=== PATIENT | female | born 1945 | race Caucasian/White ===

== ENCOUNTER 2017-09-18 20:55 | Emergency (ER) | payer OTHER ==
[~2017-09-18] VITALS: Ht 160 cm; Wt 88.6 kg
[2017-09-18 20:59] VITALS: BP 134/70
--- NOTE | 2017-09-18 21:06 | NUR ---
PT.AMBULATED TO [facility]
[2017-09-18] MEDS: PANTOPRAZOLE 40 MG INJ VIAL IVP ONE ×2 (22:15→23:15)
--- NOTE | 2017-09-18 22:22 | NUR ---
TO ER BED 5
--- NOTE | 2017-09-18 22:23 | NUR ---
72/F CAME IN ED, C/O 02/11 MID ABD PAIN X1 DAY. PT REPORTS NAUSEA, DENIES V/D. LBM TODAY. SKIN IS INTACT, PINK/WARM/DRY; AAOX4, PERRL, WITH EVEN AND STEADY GAIT; LUNGS CLEAR BL, BREATHING UNLABORED; HR EVEN AND REGULAR, BL PERIPHERAL PULSES PRESENT; BS ACTIVE X4, ABD SOFT, ROUND, TENDER ON MID ABD, DENIES TENDERNESS ON LOWER QUADRANTS; PT DENIES ANY FEVER, CP, SOB, OR COUGH AT THIS TIME; VSS; PATIENT POSITIONED FOR COMFORT; HOB ELEVATED; BEDRAILS UP X2; BED DOWN. ER MD DR MOREL AWARE.
[2017-09-18 22:32] LABS: BASOPHILS % (AUTO) 0.5 % (0.0-2.0); EOSINOPHILS % (AUTO) 0.9 % (0.0-4.0); HEMATOCRIT 38.8 % (36-48); HEMOGLOBIN 12.4 g/dL (12.0-16.0); LYMPHOCYTES # (AUTO) 0.5 K/uL (2.5-16.5); LYMPHOCYTES % (AUTO) 15.3 % (20.5-51.1); MEAN CORPUSCULAR HEMOGLOBIN 27 pg (27-31); MEAN CORPUSCULAR HGB CONC 32 g/dL (33-37); MEAN CORPUSCULAR VOLUME 84.3 fL (80-94); MONOCYTES # (AUTO) 0.3 K/uL (0.8-1.0); MONOCYTES % (AUTO) 9.2 % (1.7-9.3); NEUTROPHILS # (AUTO) 2.4 K/uL (1.8-7.7); NEUTROPHILS % (AUTO) 74.1 % (42.2-75.2); PLATELET COUNT (AUTO) 191 K/uL (140-450); RED CELL DISTRIBUTION WIDTH 15.1 % (11.6-13.7); WHITE BLOOD COUNT (AUTO) 3.2 K/uL (4.8-10.8)
[2017-09-18] MEDS ORDERED: MORPHINE SULFATE 4 MG/ML SYR IVP ONE (22:45)
[2017-09-18 23:04] LABS: APPEARANCE,URINE CLEAR (CLEAR); BILIRUBIN,URINE NEGATIVE (NEGATIVE); BLOOD, URINE NEGATIVE (NEGATIVE); COLOR,URINE YELLOW (YELLOW); LEUKOCYTE ESTERASE ,URINE 1+ (NEGATIVE); NITRITE, URINE NEGATIVE (NEGATIVE); UGLUCOSE NEGATIVE (NEGATIVE)
[2017-09-18 23:24] LABS: RBC,URINE 0-5 (RARE) /HPF (0-5); URINE AMORPHOUS URATE 1+ /HPF (None Seen); WBC,URINE 0-5 (RARE) /HPF (0-5)
--- NOTE | 2017-09-19 00:09 | NUR ---
PT RESTING COMFORTABLY IN BED, PT REPORTS RELIEF OF PAIN, RR EVEN AND UNLABORED, ALL NEEDS MET AT THIS TIME.
[2017-09-19] MEDS ORDERED: cefTRIAXone 1,000 MG in LIDOCAINE MPF 1% - **ER/OR** 2.1 ML IM ONE (00:20)
[2017-09-19] MEDS ORDERED: cefTRIAXone 1,000 MG VIAL ONE (00:48)
--- NOTE | 2017-09-19 00:53 | NUR ---
ROCEPHIN IM WITH LIDOCAINE ADMINISTERED ORDERED WITH EDUCATION, PT TOLERATED WELL.
--- NOTE | 2017-09-19 02:02 | NUR ---
PT SLEEPING COMFORTABLY, VSS, RR EVEN AND UNLABORED. ALL NEEDS MET.
[2017-09-19] MEDS ORDERED: NACL 0.9% 1,000 ML IV ONE (04:00)
--- NOTE | 2017-09-19 04:00 | NUR ---
PT SLEEPING COMFORTABLY, VSS, RR EVEN AND UNLABORED. ALL NEEDS MET.
[2017-09-19 04:32] LABS: ANION GAP 17.3 (8-16); CARBON DIOXIDE 27.3 mmol/L (21-32); CHLORIDE 101 mmol/L (98-107); GLUCOSE 112 mg/dL (74-106); POTASSIUM 3.6 mmol/L (3.5-5.1); SODIUM SERUM 142 mmol/L (136-145); UREA NITROGEN, BLOOD 21 mg/dL (7-18)
[2017-09-19 04:33] LABS: ALBUMIN 3.4 g/dL (3.4-5.0); AMYLASE 31 U/L (25-115); ASPARTATE AMINOTRANSFERASE 28 U/L (15-37); LIPASE 98 U/L (73-393); TOTAL BILIRUBIN 0.4 mg/dL (0.0-1.0)
[2017-09-19 05:48] VITALS: BP 148/77
--- NOTE | 2017-09-19 05:48 | NUR ---
Patient discharged with v/s stable. Written and verbal after care instructions given and explained. Patient alert, oriented and verbalized understanding of instructions. Ambulatory with steady gait. All questions addressed prior to discharge. ID band removed. Patient advised to follow up with PMD. Rx of CEPHALEXIN 500MG given. Patient educated on indication of medication including possible reaction and side effects. Opportunity to ask questions provided and answered.
== END 2017-09-19 05:48 | disposition home or self-care (01) ==
LOC: MED 20:55
DX: N39.0 Urinary tract infection, site not specified (principal); E78.00 Pure hypercholesterolemia, unspecified; I10 Essential (primary) hypertension; Z90.710 Acquired absence of both cervix and uterus
CPT/HCPCS: 36415; 80053; 81001; 82150; 83605; 83690; 85025; 87040; 96372; 96374; 96375; 99284; C9113; J0696; J2270; 87086

== ENCOUNTER 2017-09-25 15:55 | Emergency (ER) | payer OTHER ==
[~2017-09-25] VITALS: Ht 162.6 cm; Wt 89.8 kg
[2017-09-25 16:01] VITALS: BP 142/63
[2017-09-25 16:28] VITALS: BP 142/63
== END 2017-09-25 16:28 | disposition home or self-care (01) ==
LOC: MED 15:55
DX: K59.00 Constipation, unspecified (principal); I10 Essential (primary) hypertension; E78.5 Hyperlipidemia, unspecified
CPT/HCPCS: 99282

== ENCOUNTER 2021-10-25 13:13 | Emergency (ER) | payer OTHER ==
[~2021-10-25] VITALS: Ht 157.5 cm; Wt 85.7 kg
[2021-10-25 13:23] VITALS: BP 151/83
--- NOTE | 2021-10-25 13:34 | NUR ---
Patient ambulated with steady gait to bed 2.
--- NOTE | 2021-10-25 13:45 | NUR ---
76 Y/O FEMALE [facility] C/O VOMITING/DIARRHEA X TODAY. PT STATES THIS OCCURED AFTER EATING A HAMBURGER LAST NIGHT. PT DENIES FEVER,CHILLS. PT AAOX4. ABLE TO MAKE NEEDS KNOWN. DENIES PAIN AT THIS TIME. PMH:HTN, HDL, ARTHRITIS NKA
[2021-10-25] MEDS ORDERED: AZITHROMYCIN 250 MG TAB PO ONE (13:50)
[2021-10-25] MEDS ORDERED: NACL 0.9% 500 ML IV ONE (13:50)
[2021-10-25 14:27] LABS: BASOPHILS % (AUTO) 0.3 % (0.0-2.0); EOSINOPHILS % (AUTO) 0.1 % (0.0-4.0); HEMATOCRIT 37.5 % (36-48); HEMOGLOBIN 12.8 g/dL (12.0-16.0); LYMPHOCYTES # (AUTO) 0.6 K/uL (2.5-16.5); LYMPHOCYTES % (AUTO) 16.4 % (20.5-51.1); MEAN CORPUSCULAR HEMOGLOBIN 30 pg (27-31); MEAN CORPUSCULAR HGB CONC 34 g/dL (33-37); MEAN CORPUSCULAR VOLUME 87.3 fL (80-94); MONOCYTES # (AUTO) 0.3 K/uL (0.8-1.0); MONOCYTES % (AUTO) 8.8 % (1.7-9.3); NEUTROPHILS # (AUTO) 2.8 K/uL (1.8-7.7); NEUTROPHILS % (AUTO) 74.4 % (42.2-75.2); PLATELET COUNT (AUTO) 143 K/uL (140-450); RED CELL DISTRIBUTION WIDTH 15.5 % (11.6-13.7); WHITE BLOOD COUNT (AUTO) 3.8 K/uL (4.8-10.8)
[2021-10-25 14:56] LABS: ALBUMIN 3.8 g/dL (3.4-5.0); ASPARTATE AMINOTRANSFERASE 23 U/L (15-37); CHLORIDE 105 mmol/L (98-107); CREATININE 0.8 mg/dL (0.6-1.3); GLUCOSE 138 mg/dL (74-106); SODIUM SERUM 141 mmol/L (136-145); TOTAL BILIRUBIN 0.6 mg/dL (0.0-1.0); UREA NITROGEN, BLOOD 20 mg/dL (7-18)
[2021-10-25] MEDS ORDERED: POTASSIUM CHLORIDE 10 MEQ TABER PO ONE (15:10)
[2021-10-25 17:15] VITALS: BP 120/78
--- NOTE | 2021-10-25 17:15 | NUR ---
Patient discharged with v/s stable. Written and verbal after care instructions given and explained. Patient verbalized understanding. Ambulatory with steady gait. IV DISCONTINUED All questions addressed prior to discharge. Advised to follow up with PMD.
== END 2021-10-25 17:15 | disposition home or self-care (01) ==
LOC: MED 13:13
DX: K52.9 Noninfective gastroenteritis and colitis, unspecified (principal); I10 Essential (primary) hypertension
CPT/HCPCS: 36415; 80053; 81002; 85025; 96360; 99283; J7030

== ENCOUNTER 2021-11-13 21:14 | Emergency (ER) | payer OTHER ==
[~2021-11-13] VITALS: Ht 160 cm; Wt 59.0 kg
[2021-11-13 21:14] VITALS: BP 154/82
--- NOTE | 2021-11-13 21:14 | NUR ---
JAMES FROM HOME WITH C/O N/V, ABD PAIN, 3 HOURS AGO.SHE WAS GIVEN ZOFRAN 4 MG ODT ENROUTE
[2021-11-13] MEDS ORDERED: ONDANSETRON 4 MG/2 ML VIAL IVP ONE (23:50)
[2021-11-14] MEDS ORDERED: ACETAMINOPHEN EXTRA STRENGTH 500 MG TAB PO ONE
--- NOTE | 2021-11-14 | NUR ---
LABS BEING DRAWN
[2021-11-14 00:24] LABS: BASOPHILS % (AUTO) 0.2 % (0.0-2.0); EOSINOPHILS % (AUTO) 0.8 % (0.0-4.0); HEMATOCRIT 42.6 % (36-48); HEMOGLOBIN 14.3 g/dL (12.0-16.0); LYMPHOCYTES # (AUTO) 0.2 K/uL (2.5-16.5); LYMPHOCYTES % (AUTO) 6.5 % (20.5-51.1); MEAN CORPUSCULAR HEMOGLOBIN 30 pg (27-31); MEAN CORPUSCULAR HGB CONC 34 g/dL (33-37); MEAN CORPUSCULAR VOLUME 89.1 fL (80-94); MONOCYTES # (AUTO) 0.3 K/uL (0.8-1.0); MONOCYTES % (AUTO) 8.1 % (1.7-9.3); NEUTROPHILS # (AUTO) 3.1 K/uL (1.8-7.7); NEUTROPHILS % (AUTO) 84.4 % (42.2-75.2); PLATELET COUNT (AUTO) 161 K/uL (140-450); RED BLOOD CELL COUNT(AUTO) 4.78 MIL/uL (4.20-5.40); RED CELL DISTRIBUTION WIDTH 15.9 % (11.6-13.7); WHITE BLOOD COUNT (AUTO) 3.6 K/uL (4.8-10.8)
[2021-11-14 00:55] LABS: ALBUMIN 4.1 g/dL (3.4-5.0); ANION GAP 19.2 (8-16); ASPARTATE AMINOTRANSFERASE 26 U/L (15-37); CARBON DIOXIDE 22.5 mmol/L (21-32); CHLORIDE 107 mmol/L (98-107); CREATININE 1.4 mg/dL (0.6-1.3); GLUCOSE 224 mg/dL (74-106); POTASSIUM 3.7 mmol/L (3.5-5.1); SODIUM SERUM 145 mmol/L (136-145); TOTAL BILIRUBIN 0.5 mg/dL (0.0-1.0); UREA NITROGEN, BLOOD 21 mg/dL (7-18)
[2021-11-14] MEDS ORDERED: ONDA-188 SL (02:35)
--- NOTE | 2021-11-14 03:00 | NUR ---
MEDICATED PER [facility]MDS ORDER, TOLERATED WELL, NO N/V NOTED
[2021-11-14] MEDS ORDERED: ONDANSETRON 4 MG/2 ML VIAL ONE (03:15)
[2021-11-14] MEDS ORDERED: ACETAMINOPHEN EXTRA STRENGTH 500 MG TAB ONE (03:16)
[2021-11-14] MEDS ORDERED: ONDANSETRON 4 MG TAB ONE (03:18)
[2021-11-14] MEDS ORDERED: ONDANSETRON 4 MG ODT PO ONE (03:20)
[2021-11-14 03:35] VITALS: BP 121/80
--- NOTE | 2021-11-14 03:35 | NUR ---
Patient discharged with v/s stable. Written and verbal after care instructions given and explained. Patient alert, oriented and verbalized understanding of instructions. Ambulatory with steady gait. All questions addressed prior to discharge. ID band removed. Patient advised to follow up with PMD. Rx of ZOFRAN ODT given. Patient educated on indication of medication including possible reaction and side effects. Opportunity to ask questions provided and answered.
== END 2021-11-14 03:35 | disposition home or self-care (01) ==
LOC: MED 21:14
DX: R11.2 Nausea with vomiting, unspecified (principal); R19.7 Diarrhea, unspecified; I10 Essential (primary) hypertension; Z90.710 Acquired absence of both cervix and uterus
CPT/HCPCS: 36415; 80053; 82009; 85025; 99283; Q0162; J2405

== ENCOUNTER 2021-12-23 12:23 | Emergency (ER) | payer OTHER ==
[~2021-12-23] VITALS: Ht 154.9 cm; Wt 86.0 kg
[~2021-12-23 12:23] MED LIST: ONDA-188 SL
--- NOTE | 2021-12-23 12:50 | NUR ---
PATIENT LEFT WITHOUT BEING SEEN BY DR. GRANT. NO FURTHER CARE PROVIDED FOR PATIENT.
--- NOTE | 2021-12-23 12:50 | NUR ---
CALLEDX1. NO SHOW.
[2021-12-23 12:53] VITALS: BP 118/70
--- NOTE | 2021-12-23 12:59 | NUR ---
Joyce solorio in [facility] - 12/23/21 at 1300 by MED[facility] NEW
--- NOTE | 2021-12-23 13:08 | NUR ---
CALLED X2. NO SHOW.
--- NOTE | 2021-12-23 15:20 | NUR ---
CALLED [phone], LEFT A MESSAGE.
[2021-12-23 17:23] VITALS: BP 159/78
--- NOTE | 2021-12-23 17:32 | NUR ---
[employer]. [phone] JANIYA.
--- NOTE | 2021-12-23 17:40 | NUR ---
C/O RASH AT RIGHT UPPER ARM S/P POSSIBLE SPIDER BITE AT 7 AM TODAY. PMH: ABDOMINAL CANCER, HTN
[2021-12-23] MEDS ORDERED: ACET-10509 PO (19:02)
[2021-12-23] MEDS ORDERED: DOXY-690 PO (19:02)
[2021-12-23 19:26] VITALS: BP 134/68
--- NOTE | 2021-12-23 19:26 | NUR ---
Patient discharged with v/s stable. Written and verbal after care instructions given and explained. Patient alert, oriented and verbalized understanding of instructions. Ambulatory with steady gait. All questions addressed prior to discharge. ID band removed. Patient advised to follow up with PMD. Rx of VIBRAMYCIN&TYLENOL given. Patient educated on indication of medication including possible reaction and side effects. Opportunity to ask questions provided and answered.
== END 2021-12-23 19:26 | disposition home or self-care (01) ==
LOC: MED 12:23
DX: L03.113 Cellulitis of right upper limb (principal); I10 Essential (primary) hypertension; Z79.1 Long term (current) use of non-steroidal anti-inflammatories (NSAID); Z79.899 Other long term (current) drug therapy
CPT/HCPCS: 99283

== ENCOUNTER 2022-12-12 09:27 | Emergency (ER) | payer MEDICARE, OTHER ==
[~2022-12-12] VITALS: Ht 160 cm; Wt 77.7 kg
[~2022-12-12 09:27] MED LIST changes: +ACET-10509 PO; +DOXY-690 PO
[2022-12-12 09:58] VITALS: BP 154/79; PULSE 70; RESP 16; TEMP 96.7; O2SAT 99
[2022-12-12] MEDS ORDERED: NACL 0.9% 1,000 ML IV ONE ×2 (10:35→11:35)
[2022-12-12 11:04] LABS: BASOPHILS % (AUTO) 0.6 % (0.0-2.0); EOSINOPHILS % (AUTO) 0.2 % (0.0-4.0); HEMATOCRIT 38.7 % (36-48); LYMPHOCYTES % (AUTO) 32.2 % (20.5-51.1); MEAN CORPUSCULAR HEMOGLOBIN 30 pg (27-31); MEAN CORPUSCULAR HGB CONC 34 g/dL (33-37); MEAN CORPUSCULAR VOLUME 89.2 fL (80-94); MONOCYTES # (AUTO) 0.2 K/uL (0.8-1.0); MONOCYTES % (AUTO) 7.5 % (1.7-9.3); NEUTROPHILS # (AUTO) 1.8 K/uL (1.8-7.7); NEUTROPHILS % (AUTO) 59.5 % (42.2-75.2); PLATELET COUNT (AUTO) 127 K/uL (140-450); RED BLOOD CELL COUNT(AUTO) 4.33 MIL/uL (4.20-5.40); WHITE BLOOD COUNT (AUTO) 3.1 K/uL (4.8-10.8)
[2022-12-12 11:21] LABS: ALANINE AMINOTRANSFERASE 41 U/L (12-78); ALKALINE PHOSPHATASE 71 U/L (50-136); ANION GAP 12.8 (8-16); ASPARTATE AMINOTRANSFERASE 24 U/L (15-37); CALCIUM 8.6 mg/dL (8.5-10.1); CARBON DIOXIDE 29.6 mmol/L (21-32); CHLORIDE 94 mmol/L (98-107); CREATININE 1.1 mg/dL (0.6-1.3); POTASSIUM 4.4 mmol/L (3.5-5.1); SODIUM SERUM 132 mmol/L (136-145); TOTAL BILIRUBIN 0.8 mg/dL (0.0-1.0); TOTAL PROTEIN, SERUM 5.9 g/dL (6.4-8.2); UREA NITROGEN, BLOOD 28 mg/dL (7-18)
[2022-12-12 11:24] LABS: GLUCOSE 614 mg/dL (74-106)
[2022-12-12] MEDS ORDERED: INSULIN REGULAR, HUMAN 100 UNIT/ML VIAL SUBQ ONE (11:35)
[2022-12-12 12:09] VITALS: O2SAT 99
[2022-12-12 13:10] LABS: ACETONE, SERUM NEGATIVE (NEGATIVE)
[2022-12-12 13:45] LABS: APPEARANCE,URINE CLEAR (CLEAR); BILIRUBIN,URINE NEGATIVE (NEGATIVE); BLOOD, URINE NEGATIVE (NEGATIVE); COLOR,URINE YELLOW (YELLOW); LEUKOCYTE ESTERASE ,URINE NEGATIVE (NEGATIVE); NITRITE, URINE NEGATIVE (NEGATIVE); PROTEIN,URINE NEGATIVE (NEGATIVE); UGLUCOSE 3+ (NEGATIVE); UROBILINOGEN,URINE 0.2 EU/dL (0.2 - 1)
[2022-12-12 14:10] VITALS: O2SAT 99
[2022-12-12] MEDS ORDERED: FLUCONAZOLE 100 MG TAB PO ONE (16:15)
[2022-12-12 16:40] VITALS: BP 117/98; PULSE 54; RESP 16; TEMP 98.9; O2SAT 99
== END 2022-12-12 16:43 | disposition short-term general hospital (02) ==
LOC: MED 09:27
DX: S80.12XA Contusion of left lower leg, initial encounter (principal); S09.90XA Unspecified injury of head, initial encounter; N89.8 Other specified noninflammatory disorders of vagina; R42 Dizziness and giddiness; E11.65 Type 2 diabetes mellitus with hyperglycemia; M25.572 Pain in left ankle and joints of left foot; D72.819 Decreased white blood cell count, unspecified; D69.6 Thrombocytopenia, unspecified; E86.0 Dehydration; B37.31 Acute candidiasis of vulva and vagina; E87.1 Hypo-osmolality and hyponatremia; I10 Essential (primary) hypertension; Z79.899 Other long term (current) drug therapy; Z90.710 Acquired absence of both cervix and uterus; Z20.822 Contact with and (suspected) exposure to COVID-19; X58.XXXA Exposure to other specified factors, initial encounter; Y93.89 Activity, other specified; Y92.89 Other specified places as the place of occurrence of the external cause; Y99.8 Other external cause status
CPT/HCPCS: 36415; 70450; 71045; 73590; 73610; 73630; 80053; 81003; 82009; 82803; 82948; 83605; 83880; 83935; 84484; 85025; 87040; 87210; 87426; 93005; 96360; 96361; 96372; 99291; J1815; J7030